=== PATIENT | male | born 1950 | race Caucasian/White ===

== ENCOUNTER → 2016-03-31 | Day surgery (SDC) | payer MEDICARE ==
[~2016-03-31] MED LIST: BUPIVACAINE 0.25%-EPINEPHRINE 1:200,000 30 ML ONE; CEFAZOLIN 1 GM VIAL ONE; DEXAMETHASONE 4 MG/ML VIAL IV ONE; FENTANYL 100 MCG/2 ML VIAL IV PRN; FENTANYL 250 MCG/5 ML VIAL IV ONE; HYDROmorphone 1 MG INJECTION IV PRN; LABETALOL 20 MG/4 ML SYRINGE IV PRN; LIDOCAINE 100 MG PFS IV ONE; MEPERIDINE 25 MG/ML TUBEX IV PRN; ONDANSETRON HCL 4 MG ODT TAB PO PRN; ONDANSETRON HCL 4 MG/2 ML VIAL IV ONE; ONDANSETRON HCL 4 MG/2 ML VIAL IV PRN; PROPOFOL 200 MG/20 ML VIAL IV ONE; SUCCINYLCHOLINE 20 MG/1 ML INJ 10 ML MDV IV ONE; hydrALAZINE 20 MG/ML VIAL IV PRN
--- NOTE | 2016-03-31 08:04 | HIM.ANES ---
Anesthesia Evaluation & Plan Diagnoses: COMPLEX TEAR OF MEDIAL MENSC, CURRENT INJURY, L KNEE, INIT (03/31/16) - Focused Review of Systems Cardiac History: Yes: Hx Heart Attack (2006), Hx Cardiac Catheterization (2006) , Hx Afib/Aflutter (CARDIOVERSION), Hx Cardiac Disorders, Hx Abnormal Cholesterol/Hyperlipidemia, Hx Coronary Artery Bypass Graft HEENT: Yes: Hx Vision Problem (READING GLASSES), Other HEENT Problems Respiratory: Yes: Hx Snoring Gastrointestinal: Yes: Hx Gastroesophageal Reflux Disease, Hx Gastrointestinal Disorders, Hx Colonoscopy (UNKNOWN DATE NORMAL) Neurological/Musculoskeletal: No: Hx Neurological Disorders Psychological: No Hx Mental/Emotional Disorders Endocrine: Yes: Hx Hypothyroidism Blood/Autoimmune: No: Hx AIDS, Hx Hepatitis (type) Smoking Status: Former smoker Hx Echocardiogram (date): (01/2016 ARUN EF 55-60% WITH MILD TR AND MR) Surgical History: Yes: Ablation (01/2016), CABG - Focused Physical Exam Mallampati: Class III Thyromental Distance: Less than 3 Neck: Full Range of Motion Dental: Normal - no significant findings Cardiovascular/Chest: Normal Respiratory: Lungs clear Any problems with anesthesia, including nausea and vomiting?: No Any relatives with a history of Malignant Hyperthermia?: No Does the patient have a history of Motion Sickness-: No Other: Allergies Allergy/AdvReac Type Severity Reaction Status Date / Time iodine Allergy Hives* Verified 03/31/16 07:54 Home Medications Medication Instructions Recorded Last Taken Type Apixaban [Eliquis] 5 mg PO BID 03/26/16 03/23/16 History Ibuprofen 200 - 600 mg PO Q4-6H PRN 03/26/16 3 Days Ago History Krill Oil/Reno-3/Dha/Epa [Fish 1 each PO DAILY 03/26/16 03/27/16 History Oil with Krill Softgel] Levothyroxine Sodium [Synthroid] 175 mcg PO DAILY 03/26/16 03/30/16 History Omeprazole 20 mg PO DAILY 03/26/16 03/31/16 06:30 History Sotalol HCl [Sotalol] 80 mg PO BID 03/26/16 03/31/16 06:30 History Height and Weight Patient's height 5 ft 11 in Patient's weight 99.79 kg - Anesthetic Plan Anesthesia Type: General (LMA OK) ASA Class: 2 -: I have examined this patient and reviewed the medical record. The patient has been assessed prior to anesthesia. Risks and benefits of anesthesia and anesthetic technique options have been discussed and all questions answered. The patient accepts the risk and desires me to proceed with the planned anesthetic.
--- NOTE | 2016-03-31 10:02 | HIMOPRPT ---
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 POSTOPERATIVE DIAGNOSIS: Same PROCEDURES: Left knee: 1. Arthroscopic subtotal medial meniscectomy. 2. Limited synovectomy. ANESTHESIA: General. SURGEON: Harlan Story MD. PSYCHOLOGICAL STRESS EVALUATOR: MAIA De Leon. SPECIMENS: None. COMPLICATIONS: None. TOURNIQUET TIME: 19 minute at 250 millimeters of mercury. IMPLANTS: None. FINDINGS: Grade 4 changes to areas of the weight-bearing surface the medial femoral condyle and isolated medial tibial plateau. Grade 1 changes to the lateral compartment of the knee. Grade 2 and 3 changes to the posterior patella. Complex tear of the posterior horn medial meniscus extending to mid body with a complete radial tear at the midbody extending to the meniscal capsular junction. Large radial tear of the posterior horn flipped into the posterior gutter. SIGNIFICANT HISTORY, INDICATIONS, AND CONSENT: Don is a 65-year-old with long- standing history of knee pain and swelling as well as mechanical symptoms recalcitrant to conservative treatment, who wished to proceed with surgical intervention prior to consideration of total knee replacement for potential improvement in pain, swelling, and mechanical symptoms. Consent was obtained. OPERATION IN DETAIL: The patient was seen in the preop holding area. The left knee was signed. Consent was reviewed. Questions were answered. H and P updated. SCD placed on the contralateral lower extremity. The patient was taken to operating room, placed in supine position on the operating table. Anesthesia placed monitoring devices and performed LMA intubation. The left lower extremity had a tourniquet placed high up on the thigh with the contralateral lower extremity in a well leg green and the [right/left] leg in the leg green. The lower extremity was then sterilely prepped and draped in usual orthopedic fashion. Time-out was performed. Patient received prophylactic antibiotics. Consensus was reached amongst participants in the OR suite. Next, Esmarch was used to exsanguinate the limb. Tourniquet raised to 250 millimeter of mercury. Standard anteromedial and lateral as well as superomedial outflow portals were created. Diagnostic arthroscopy was then performed. Suprapatellar pouch was without significant abnormality. There was some mild synovitis present. Medial and lateral gutters were also inspected with some mild synovitis without loose body or other gross abnormality. Inspection of the posterior patella revealed some grade 2 changes as well as potentially some isolated grade 3 changes to the proximal pole of the patella. Limited chondroplasty was performed using a shaver removing unstable cartilaginous flaps. The trochlea showed grade 1 changes. The lateral compartment was then entered revealing some small tearing of the central portion lateral meniscus. A shaver was used to debride this in a very limited fashion. ACL and PCL were probed and found to be intact. A spinal needle was used to gently trephinated the deep MCL and under valgus stress medial compartment was slightly opened. This revealed a large medial meniscus tear being complex in nature with a large horizontal cleavage component extending from posterior horn to midbody were radial tear extended into the meniscal capsular junction. There was also a large radial component with a flap of posterior horn extending into the posterior gutter. Using a shaver and several biters a subtotal medial meniscectomy was performed removing unstable cartilaginous flaps from the meniscus and contouring anteriorly. We then performed a limited chondroplasty of the medial femoral condyle which showed grade 3 changes nearly throughout the weight-bearing surface with some isolated areas of grade 4 changes to the anterior aspect of the medial femoral condyle and the medial portion of the medial tibial plateau. A limited synovectomy was then performed removing hypertrophic synovium from the suprapatellar pouch as well as medial and lateral gutters. Incision sites were closed with 4-0 nylon suture. Tourniquet was released. The subcutaneous tissue was injected with 0.25% Marcaine at the incision sites and closed with 3-0 nylon suture. Sterile soft tissue dressings were placed. Patient was aroused by Anesthesia and taken to Postanesthesia Care Unit in stable condition. PLAN: The patient will be discharged home when okay with Anesthesia. Prescriptions were given for p.r.n. pain, constipation, nausea, and vomiting. He will return to clinic postop day 10 for suture removal wound check. Begin physical therapy for quad strengthening and range of motion on postop day 3. Recommend ASA 325 mg PO QD x14 days for DVT chemoprophylaxis.
[2016-03-31 11:15] VITALS: TEMP 97.6
[2016-03-31 12:58] VITALS: PULSE 64
[2016-03-31 13:38] VITALS: BP 164/79
--- NOTE | 2016-03-31 13:38 | SC.ANESPOS ---
Post-Anesthesia Note LOC: Fully Awake Post-Anesthesia Assessment: Awake, Returned to Baseline, Hemodynamically Stable , Pain Control Adequate Phase I & II Recovery Complete: Yes Apparent Anesthesia Complication: No : N PACU Discharge Time: 11:55 - Vital Signs Blood Pressure: 164/79 Pulse: 64 Resp Rate: 18 O2 Sat: 98 Temp: 97.6 F - Comments Anesthesia Discharge Time Report Time 11:55
== END ==
LOC: SDC 07:25
PROVIDERS: ATTEND Orthopaedic Surgery
PROC: 0SBD4ZZ Excision of Left Knee Joint, Percutaneous Endoscopic Approach (ICD-10-PCS; principal; 2016-03-31 09:05)
DX: S83.232A Complex tear of medial meniscus, current injury, left knee, initial encounter (principal); M17.12 Unilateral primary osteoarthritis, left knee; M65.862 Other synovitis and tenosynovitis, left lower leg; I25.2 Old myocardial infarction; I48.91 Unspecified atrial fibrillation; E78.5 Hyperlipidemia, unspecified; Z95.1 Presence of aortocoronary bypass graft; K21.9 Gastro-esophageal reflux disease without esophagitis; E03.9 Hypothyroidism, unspecified; Z87.891 Personal history of nicotine dependence; Z79.899 Other long term (current) drug therapy; X58.XXXA Exposure to other specified factors, initial encounter
CPT/HCPCS: 29881; J0330; J0690; J1100; J2001; J2405; J3010; J3490